=== PATIENT | male | born 1985 | race Caucasian/White ===

== ENCOUNTER 2021-04-19 18:21 | Emergency (ER) | payer OTHER ==
[2021-04-19] MEDS ORDERED: 8 HOUR650 MG PO (23:51)
[2021-04-19] MEDS ORDERED: VENTOLIN HFA18 GM INH (23:51)
[2021-04-19] MEDS ORDERED: ZOFRAN4 M1 PO (23:51)
== END 2021-04-20 00:05 | disposition home or self-care (01) ==
LOC: FER 18:21
DX: U07.1 COVID-19 (principal); J44.9 Chronic obstructive pulmonary disease, unspecified; F17.210 Nicotine dependence, cigarettes, uncomplicated
CPT/HCPCS: J7030; M0243; Q0244; U0002